=== PATIENT | female | born 1960 | race Caucasian/White ===

== ENCOUNTER 2017-06-24 09:23 | Emergency (ER) | payer MEDICAID ==
[~2017-06-24] VITALS: Ht 161.3 cm; Wt 68.0 kg
[~2017-06-24 09:23] MED LIST: KEFLEX 500MG.500 MG PO; LORTAB 500 MG-71 TAB PO; MEDROL 4MG. DOSE4 MG PO; NORCO 325 MG-51 TAB PO; PREDNISONE 20MG20 MG PO; SIMVASTATIN20 MG PO; TESSALON PERLE100 MG PO; VICODIN 5/500 T1 TAB PO; VOLTAREN75 MG PO
--- OUTSIDE RECORDS SUMMARY | 2017-06-24 09:33 | External Medical Summary Rpt | CCD ---
Author Author , YANNI LIAO Address Unknown Phone [email or web address] Care Team Providers Care Manager Of Operations Name Role Phone Doris Carmona MD, Unavailable Unavailable Doris Carmona MD [facility] # Unavailable Unavailable [id number], [facility] # [id number] Purpose Continuity of Care Document - 10-04-2009 through 2016 Problems Code Diagnosis DOS Provider Status 465.9 465.9 ACUTE 06-07-2013 [place] URI NOS [facility] V15.82 V15.82 06-07-2013 [place] HISTORY OF [facility] TOBACCO USE [facility] Allergies, Adverse Reactions, Alerts Type Allergy to substance Adverse Reaction to Substance Substance Reaction Severity NO KNOWN ALLERGIES Unknown Unknown Medications Na ND Rx Da Fi Fi Am Da Di Ph RX Ph St me C No te ll ll ou ys ag ar # ys at rm s nt no ma ic us Or Da si cy ia de te s n re d IP 00 11 0 No RA 48 -2 T- 70 4- Lo AL 20 20 ng BU 10 13 er T 1 0. Ac 5- ti 3( ve 2. 5) MG /3 ML UT 00 11 0 No ED 05 -2 NI 40 4- Lo SO 01 20 ng NE 82 13 er 0 20 Ac ti MG ve TA BL ET VE 00 11 0 No NT 17 -2 OL 30 4- Lo IN 68 20 ng 22 13 er HF 4 A Ac 90 ti ve MC G IN MONTES LE R Ae 08 11 0 No ro 37 -2 ch 30 4- Lo am 76 20 ng be 50 13 er r/ 0 Op Ac ti ti montes ve le r Hy [address] 57 -2 oc 00 4- Lo od 08 20 ng on 10 13 er e 1 5M Ac G/ ti Ho ve ma tr op in e 1. 00 10 10 0 56 14 [place] 44 FL Ac 40 -0 -0 .0 L- 96 OR ti 60 5- 5- 00 MA 68 EN ve 35 20 20 RT 8 CE 70 11 11 5 PH SA AR RA MA H CY L # 10 05 91 BR 60 09 09 1 24 6 NE 71 FL Ac OM 43 -0 -0 0. L- 34 OR ti FE 20 8- 8- 00 MA 23 EN ve D 83 20 20 0 RT 1 CE DM 71 11 11 6 PH SA CO AR RA UG MA H H CY L SY # RU P 10 05 91 00 09 09 0 20 5 NE 44 FL Ac 40 -0 -0 .0 L- 96 OR ti 60 8- 8- 00 MA 11 EN ve 35 20 20 RT 2 CE 70 11 11 5 PH SA AR RA MA H CY L # 10 05 91 ME 00 09 09 0 21 6 NE 71 FL Ac TH 60 -0 -0 .0 L- 34 OR ti YL 34 8- 8- 00 MA 22 EN ve UT 59 20 20 RT 8 CE ED 31 11 11 NI 5 PH SA SO AR RA LO MA H NE CY L 4 # MG 10 05 DO 91 SE PK DO 53 09 09 0 20 10 NE 71 FL Ac XY 48 -0 -0 .0 L- 34 OR ti CY 90 8- 8- 00 MA 22 EN ve CL 11 20 20 RT 9 CE IN 90 11 11 E 2 PH SA HY AR RA CL MA H AT CY L E # 10 0 10 MG 05 91 CA P CE 68 04 04 0 28 7 NE 71 GR Ac PH 18 -0 -0 .0 L- 14 AY ti AL 00 5- 5- 00 MA 17 ve EX 12 20 20 RT 0 RO IN 20 11 11 BE 1 PH RT 50 AR B 0 MA MG CY # CA PS 10 UL 05 E 91 TR 00 12 12 0 36 6 NE 44 NI Ac AM 37 -0 -0 .0 L- 90 CH ti AD 84 7- 7- 00 MA 31 OL ve OL 15 20 20 RT 9 S 10 10 10 CABRERA HC 1 PH E L AR A 50 MA CY MG # TA 10 BL 05 ET 91 IN 00 09 09 0 30 10 NE 70 NI Ac DO 37 -0 -0 .0 L- 84 CH ti ME 80 3- 3- 00 MA 78 OL ve TH 14 20 20 RT 0 S AC 70 10 10 CABRERA IN 1 PH E AR A 50 MA CY MG # CA 10 PS 05 UL 91 E 00 07 07 0 24 8 NE 70 NI Ac 37 -3 -3 .0 L- 80 CH ti 80 0- 0- 00 MA 30 OL ve 75 20 20 RT 8 S 19 10 10 CABRERA 3 PH E AR A MA CY # 10 05 91 00 05 05 1 36 6 WA 44 NI Ac 09 -2 -2 .0 L- 85 CH ti 30 6- 6- 00 MA 84 OL ve 89 20 20 RT 0 S 00 10 10 CABRERA 5 PH E AR A MA CY # 10 05 91 IN 00 05 05 0 30 10 WA 70 NI Ac DO 37 -2 -2 .0 L- 72 CH ti ME 80 6- 6- 00 MA 15 OL ve TH 14 20 20 RT 3 S AC 70 10 10 CABRERA IN 1 PH E AR A 50 MA CY MG # CA 10 PS 05 UL 91 E 00 05 05 0 24 4 NE 44 NI Ac 40 -0 -0 .0 L- 85 CH ti 60 5- 5- 00 MA 38 OL ve 35 20 20 RT 5 S 80 10 10 CABRERA 1 PH E AR A MA CY # 10 05 91 00 04 04 0 24 4 NE 44 NI Ac 40 -1 -1 .0 L- 84 CH ti 60 6- 6- 00 MA 96 OL ve 35 20 20 RT 8 S 80 10 10 CABRERA 1 PH E AR A MA CY # 10 05 91 00 04 04 0 24 4 NE 44 NI Ac 40 -0 -0 .0 L- 84 CH ti 60 2- 2- 00 MA 64 OL ve 35 20 20 RT 9 S 80 10 10 CABRERA 1 PH E AR A MA CY # 10 05 91 00 03 03 0 24 4 NE 44 NI Ac 40 -2 -2 .0 L- 84 CH ti 60 3- 3- 00 MA 39 OL ve 35 20 20 RT 7 S 80 10 10 CABRERA 1 PH E AR A MA CY # 10 05 91 Vital Signs 06-07-2013 19:19 Name Value Interpretat Reference Comment ion Range BP 76 mm[Hg] Diastolic BP Systolic 130 mm[Hg] Heart 105 /min Rate/Pulse O2% 95 % Respiratory 24 /min Rate 06-07-2013 19:00 Name Value Interpretat Reference Comment ion Range BP 75 mm[Hg] Diastolic BP Systolic 128 mm[Hg] Heart 104 /min Rate/Pulse Respiratory 24 /min Rate 06-07-2013 18:18 Name Value Interpretat Reference Comment ion Range O2% 91 % Encounters Encounter Start End Date Code Location Performer Type Date Emergency YOANDY Carmona MD (ER) 3 18:27 3 19:29 [facility]
--- OUTSIDE RECORDS SUMMARY | 2017-06-24 09:33 | External Medical Summary Rpt | CCD ---
Author Author , YANNI LIAO Address Unknown Phone Care Team Providers Care Manager Completions Name Role Phone Doris Carmona MD, Unavailable Unavailable Doris Carmona MD [facility] # Unavailable Unavailable [id number], [facility] # [id number] Purpose Continuity of Care Document - 10-04-2009 through 2016 Problems Code Diagnosis DOS Provider Status 465.9 465.9 ACUTE 06-07-2013 [place] URI NOS [facility] V15.82 V15.82 06-07-2013 [place] HISTORY OF [facility] TOBACCO USE [facility] Allergies, Adverse Reactions, Alerts Type Allergy to [...] 3( ve 2. 5) MG /3 ML TX 00 11 0 No ED 05 -2 [...] BR 60 09 09 1 24 6 CO 71 FL Ac OM 43 -0 -0 0. L- 34 OR ti FE 20 8- 8- 00 MA 23 EN ve D 83 20 20 0 RT 1 CE DM 71 11 11 6 PH SA CO AR RA UG MA H H CY L SY # RU P 10 05 91 00 09 09 0 20 5 CO 44 FL Ac 40 -0 -0 .0 L- 96 OR ti 60 8- 8- 00 MA 11 EN ve 35 20 20 RT 2 CE 70 11 11 5 PH SA AR RA MA H CY L # 10 05 91 ME 00 09 09 0 21 6 CO 71 FL Ac TH 60 -0 -0 .0 L- 34 OR ti YL 34 8- 8- 00 MA 22 EN ve TX 59 20 20 RT 8 CE ED 31 11 11 NI 5 PH SA SO AR RA LO MA H NE CY L 4 # MG 10 05 DO 91 SE PK DO 53 09 09 0 20 10 CO 71 FL Ac XY 48 -0 -0 .0 L- 34 OR ti CY 90 8- 8- 00 MA 22 EN ve CL 11 20 20 RT 9 CE IN 90 11 11 E 2 PH SA HY AR RA CL MA H AT CY L E # 10 0 10 MG 05 91 CA P CE 68 04 04 0 28 7 CO 71 GR Ac PH 18 -0 -0 .0 L- 14 AY ti AL 00 5- 5- 00 MA 17 ve EX 12 20 20 RT 0 RO IN 20 11 11 BE 1 PH RT 50 AR B 0 MA MG CY # CA PS 10 UL 05 E 91 TR 00 12 12 0 36 6 CO 44 NI Ac AM 37 -0 -0 .0 L- 90 CH ti AD 84 7- 7- 00 MA 31 OL ve OL 15 20 20 RT 9 S 10 10 10 CABRERA HC 1 PH E L AR A 50 MA CY MG # TA 10 BL 05 ET 91 IN 00 09 09 0 30 10 CO 70 NI Ac DO 37 -0 -0 .0 L- 84 CH ti ME 80 3- 3- 00 MA 78 OL ve TH 14 20 20 RT 0 S AC 70 10 10 CABRERA IN 1 PH E AR A 50 MA CY MG # CA 10 PS 05 UL 91 E 00 07 07 0 24 8 CO 70 NI Ac 37 -3 -3 .0 [...] E 00 05 05 0 24 4 CO 44 NI Ac 40 -0 -0 .0 L- 85 CH ti 60 5- 5- 00 MA 38 OL ve 35 20 20 RT 5 S 80 10 10 CABRERA 1 PH E AR A MA CY # 10 05 91 00 04 04 0 24 4 CO 44 NI Ac 40 -1 -1 .0 L- 84 CH ti 60 6- 6- 00 MA 96 OL ve 35 20 20 RT 8 S 80 10 10 CABRERA 1 PH E AR A MA CY # 10 05 91 00 04 04 0 24 4 CO 44 NI Ac 40 -0 -0 .0 L- 84 CH ti 60 2- 2- 00 MA 64 OL ve 35 20 20 RT 9 S 80 10 10 CABRERA 1 PH E AR A MA CY # 10 05 91 00 03 03 0 24 4 CO 44 NI Ac 40 -2 -2 .0 [...] Carmona MD (ER) 3 18:27 3 19:29 [place]
--- OUTSIDE RECORDS SUMMARY | 2017-06-24 09:34 | External Medical Summary Rpt | CCD ---
Demographics Preferred Language Turkish Marital Status Unknown Temple Affiliation Unknown Race Unknown Ethnic Group Unknown Author Author , YANNI LIAO Address Unknown Phone Immunization No patient found.
--- OUTSIDE RECORDS SUMMARY | 2017-06-24 09:34 | External Medical Summary Rpt | CCD ---
Demographics Preferred Language Colombian Marital Status Unknown Jewish Affiliation Unknown Race Unknown Ethnic Group Unknown Author Author , YANNI LIAO Address Unknown Phone [email or web address] Care Team Providers Care Platform Man Name Role Phone [facility] # Unavailable Unavailable [id number], [facility] # [id number] Purpose Continuity of Care Document - 10-04-2009 through 2016 Medications Na ND Rx Da Fi Fi Am Da Di Ph RX Ph St me C No te ll ll ou ys ag ar # ys at rm s nt no ma ic us Or Da si cy ia de te s n re d 00 10 10 0 56 14 [place] 44 FL Ac 40 -0 -0 .0 L- 96 OR ti 60 5- 5- 00 MA 68 EN ve 35 20 20 RT 8 CE 70 11 11 5 PH SA AR RA MA H CY L # 10 05 91 00 09 09 0 20 5 PR 44 FL Ac 40 -0 -0 .0 L- 96 OR ti 60 8- 8- 00 MA 11 EN ve 35 20 20 RT 2 CE 70 11 11 5 PH SA AR RA MA H CY L # 10 05 91 ME 00 09 09 0 21 6 PR 71 FL Ac TH 60 -0 -0 .0 L- 34 OR ti YL 34 8- 8- 00 MA 22 EN ve MD 59 20 20 RT 8 CE ED 31 11 11 NI 5 PH SA SO AR RA LO MA H NE CY L 4 # MG 10 05 DO 91 SE PK DO 53 09 09 0 20 10 PR 71 FL Ac XY 48 -0 -0 .0 L- 34 OR ti CY 90 8- 8- 00 MA 22 EN ve CL 11 20 20 RT 9 CE IN 90 11 11 E 2 PH SA HY AR RA CL MA H AT CY L E # 10 0 10 MG 05 91 CA P BR 60 09 09 1 24 6 PR 71 FL Ac OM 43 -0 -0 0. L- 34 OR ti FE 20 8- 8- 00 MA 23 EN ve D 83 20 20 0 RT 1 CE DM 71 11 11 6 PH SA CO AR RA UG MA H H CY L SY # RU P 10 05 91 CE 68 04 04 0 28 7 WA 71 GR Ac PH 18 -0 -0 .0 L- 14 AY ti AL 00 5- 5- 00 MA 17 ve EX 12 20 20 RT 0 RO IN 20 11 11 BE 1 PH RT 50 AR B 0 MA MG CY # CA PS 10 UL 05 E 91 TR 00 12 12 0 36 6 WA 44 NI Ac AM 37 -0 -0 .0 L- 90 CH ti AD 84 7- 7- 00 MA 31 OL ve OL 15 20 20 RT 9 S 10 10 10 CABRERA HC 1 PH E L AR A 50 MA CY MG # TA 10 BL 05 ET 91 IN 00 09 09 0 30 10 WA 70 NI Ac DO 37 -0 -0 .0 L- 84 CH ti ME 80 3- 3- 00 MA 78 OL ve TH 14 20 20 RT 0 S AC 70 10 10 CABRERA IN 1 PH E AR A 50 MA CY MG # CA 10 PS 05 UL 91 E 00 07 07 0 24 8 WA 70 NI Ac 37 -3 -3 .0 [...] E 00 05 05 0 24 4 WA 44 NI Ac 40 -0 -0 .0 L- 85 CH ti 60 5- 5- 00 MA 38 OL ve 35 20 20 RT 5 S 80 10 10 CABRERA 1 PH E AR A MA CY # 10 00 04 04 0 24 4 WA 44 NI Ac 40 -1 -1 .0 L- 84 CH ti 60 6- 6- 00 MA 96 OL ve 35 20 20 RT 8 S 80 10 10 CABRERA 1 PH E AR A MA CY # 10 00 04 04 0 24 4 WA 44 NI Ac 40 -0 -0 .0 L- 84 CH ti 60 2- 2- 00 MA 64 OL ve 35 20 20 RT 9 S 80 10 10 CABRERA 1 PH E AR A MA CY # 10 00 03 03 0 24 4 WA 44 NI Ac 40 -2 -2 .0 L- 84 CH ti 60 3- 3- 00 MA 39 OL ve 35 20 20 RT 7 S 80 10 10 CABRERA 1 PH E AR A JENNIFER CY # 10 05 91
--- OUTSIDE RECORDS SUMMARY | 2017-06-24 09:34 | External Medical Summary Rpt | CCD ---
Demographics Preferred Language Bermudian Marital Status Unknown Spiritism Affiliation Unknown Race Unknown Ethnic Group Unknown Author Author , YANNI LIAO Address Unknown Phone [email or web address] Care Team Providers Care Kids Activities Coach Name Role Phone [facility] # Unavailable Unavailable [id number], [facility] # [id number] Purpose Continuity of Care Document - 10-04-2009 [...] 91 00 09 09 0 20 5 [place] 44 FL Ac 40 -0 -0 .0 L- 96 OR ti 60 8- 8- 00 MA 11 EN ve 35 20 20 RT 2 CE 70 11 11 5 PH SA AR RA MA H CY L # 10 05 91 ME 00 09 09 0 21 6 [place] 71 FL Ac TH 60 -0 -0 .0 L- 34 OR ti YL 34 8- 8- 00 MA 22 EN ve NE 59 20 20 RT 8 CE ED 31 11 11 NI 5 PH SA SO AR RA LO MA H NE CY L 4 # MG 10 05 DO 91 SE PK DO 53 09 09 0 20 10 [place] 71 FL Ac XY 48 -0 -0 .0 L- 34 OR ti CY 90 8- 8- 00 MA 22 EN ve CL 11 20 20 RT 9 CE IN 90 11 11 E 2 PH SA HY AR RA CL MA H AT CY L E # 10 0 10 MG 05 91 CA P BR 60 09 09 1 24 6 [place] 71 FL Ac OM 43 -0 -0 [...]
--- OUTSIDE RECORDS SUMMARY | 2017-06-24 09:34 | External Medical Summary Rpt | CCD ---
Demographics Preferred Language Mongolian Marital Status Unknown Jain Affiliation Unknown Race Unknown Ethnic Group Unknown Author Author , YANNI LIAO Address Unknown Phone Immunization No patient found.
--- NOTE | 2017-06-24 10:34 | Urgent Treatment Center Report ---
History of Present Issue Date/Time Seen by Provider 06/24/17 1034 Visit Reason Pt arrived:Walked Presenting Problem:PT C/O HEAD AND CHEST CONGESTION AND COUGH X3 WEEKS Location if Accident: Onset of symptoms date/time:/ or onset unknown for:MEDICAL HX UNKNOWN Have you (or family members/close friends) recently traveled outside the [place]? N If Yes, where/when: Have you had exposure to infectious disease within the past month? TB? Other? Specify: c/o persistant cough. 3-4 weeks now. Started w/ aching and nonprod cough. Pt thought improving around 2 weeks in but then got worse "and now just at a stand still". Cough worse w/ activity, deep breath and at night. Denies SOA. Possibly occasional wheezing but not sure. No known sick contacts. Feels feverish intermittently "but nothing persistantly". 1.5 pack/2-3 days smoker. Little to no improvement w/ coricidin products Source patient Exam Limitations no limitations ALLERGIES Coded Allergies: No Known Allergies (06/24/17) Home Medications Active Scripts HYDROCODONE/ACETAMINOPHEN ([place] 5-325 Tablet) 1 TAB PO Q6HP PRN pain #12 TAB Prov: 12/26/13 History Medical History General CAD? No Angina: No HI: No Hypertension? No Hyperlipidemia? Yes CHF? No DVT? No PE? No COPD? No Asthma? No Anemia? No GERD? No Gastric ulcers? No GI Bleed? No Hernia? No Thyroid Problems? No Hypothyroidism? No CVA? No Seizures? No Diabetes? No Renal Insuffiency? No UTI? No Stones? No BPH? No GB Disease: No Nephritic Syndrome? No Asplenia? No Hepatitis? No Sickle Cell Disease? No Arthritis? No Migraines? No Cataracts? No Glaucoma? No MRSA? No HIV? No TB? No Anxiety? No Depression? No Cancer? Yes Site: VAGINAL WHEN CHILD More? No Immunization HX DT/Tetanus 10/15/10 Surgical Hx Previous Surgery?Y Tubal Ligation BLADDER D AND C Social History Smoking Hx Smoker: Current Every Day Smoker Tobacco: Yes Type Cigarettes Packs/day < 1 Pack Alcohol Alcohol: No Review of Systems All Other Systems Reviewed and Negative Constitutional see HPI, denies malaise, denies weakness Eyes denies drainage ENT nose discharge (initially), nose congestion (initially). denies: ear pain, throat pain. Respiratory see HPI Cardiovascular denies chest pain, denies palpitations Gastrointestinal denies no symptoms reported Musculoskeletal denies joint pain Skin denies rash Psychiatric/Neurological headache (mild, intermittently) Physical Exam Vital Signs Vital Signs Date Time Temp Pulse Resp B/P Pulse O2 O2 Flow FiO2 Ox Delivery Rate 06/24 0948 98.2 99 18 149/84 98 General Appearance normal appearance, no apparent distress Eye Exam - bilateral eye normal exam Ear, Nose, Throat normal ENT inspection Neck non-tender, supple Respiratory Status Yes: trachea midline, chest symmetrical, non tender chest, non productive cough (worse w/ deep breaths). No: respiratory distress, use of accessory muscles, pain on inspiration, pain on expiration. Lung Sounds anterior: lungs clear. posterior: lungs clear. bilateral: lungs clear. Cardiovascular regular rate/rhythm, no peripheral edema, no murmur Neurologic alert, oriented x 3 Mental status normal mood/affect Skin normal color, warm/dry Lymphatic no adenopathy Medical Decision Making LABS/Meds/Orders Pt receiving controlled substance in ED? No Results/Orders Orders Procedure Date/time Status CHEST(2 VIEWS-NOT PORTABLE) 06/24 0950 Active XRAY/CT/US XRAY/CT/US XRAY chest XR interpretation by reviewed by me (w/ Dr. Mcleod, ER MD) Xray Results no acute findings Progress [facility] Progress Notes Date 06/24/17 Time 1040 Comment Spoke to Aron in ER. ER MD in a procedure and unable to review CXR at this time. Will have him review once he is available. Departure Departure Time of Disposition 1053 Disposition DC Home or Self Care(routine) Clinical Impression Primary Impression: Acute bronchitis Qualifiers: Bronchitis organism: unspecified organism Qualified Code: J20.9 - Acute bronchitis, unspecified Secondary Impressions: Tobacco abuse Condition STABLE Referrals [facility] (Family) IMMEDIATELY for new or worsening symptoms OR no noticeable improvement over the next 72 hours. 911 for difficulty breathing. Patient Instructions DI for Acute Bronchitis, How to Quit Tobacco Products Additional Instructions * STOP SMOKING!!!! * start antibiotic today. Be sure to complete entire prescription even if feeling better. * Monitor Temp. Tylenol every 4 hours as needed no more then 5 times a day or 4000mg in 24 hours and/or ibuprofen every 6 hours as needed no more then 3200mg in 24 hours (as long as your primary care doctor has told you that it is ok to take both) for fever/aches/pain. ER if fever no less than 101 despite tylenol and ibuprofen * humidifier/vaporizer/hot steamy shower * Inhaler every 4-6 hours as needed like we discussed. If unsure how to use it, ask pharmacist to demonstrate how. Should help open airways and improve cough, wheezing, shortness of breath. * Mucinex during the day for your cough and cough suppressant only at night. Be sure to drink lots of water. Insurance may not cover a prescription of mucinex. Might be cheaper to get 400mg tablets and take 2 tablets morning, midday and evening all with lots of water. * Promethazine DM cough syrup will cause drowsiness. Use it only at night. No driving, operating machinery or caring for small children after taking it. * Start steroid today. Helps with inflammation therefore, cough and wheezing. Follow directions on package. Rvwd side effects. Pt reports they have taken them before. Discharge Counseling Counseled pt/family regarding diagnosis, test results, medications/RX, home care, follow up needs Prescriptions Current Visit Scripts ALBUTEROL (Proventil Hfa Inhaler) 1-2 PUFF IH Q4-6H PRN PRN SOA, wheezing #1 CAN Azithromycin (Zithromycin (Z-BIANCA) 250MG Tab) 250 MG PO DAILY #6 TAB TAKE TWO (2) TABLETS ON DAY 1, THEN ONE (1) TABLET DAY #2 THRU #5 Prednisone (Prednisone 20MG) 20 MG PO BID #10 TAB PROMETHAZINE/DEXTROMETHORPHAN (Promethazine-Dm Syrup) 10 ML PO QHSP PRN cough #120 ML at 1054
[2017-06-24] MEDS ORDERED: ZITHROMAX Z PA250 MG PO (10:56)
[2017-06-24] MEDS ORDERED: PREDNISONE 20MG20 MG PO (10:56)
[2017-06-24] MEDS ORDERED: PROVENTIL0.09 MG/A1 IH (10:56)
[2017-06-24] MEDS ORDERED: PROMETHAZINE D118 ML PO (10:56)
[2017-06-24 11:08] VITALS: BP 149/84
--- NOTE | 2017-06-24 13:31 | RADIOLOGY REPORT PS360 ---
CHEST(2 VIEWS-NOT PORTABLE) HISTORY: HEAD AND CHEST CONGESTION AND COUGH X3 WEEKS ORDERING PHYSICIAN: JULIUS ISRAEL APRN PATIENT AGE: 57 years COMPARISON: 12/26/2013 FINDINGS: The cardiomediastinal silhouette and pulmonary vascularity are within normal limits. The lungs are clear without infiltrates, suspicious nodules, or pleural effusions. No acute bony abnormalities. IMPRESSION: Negative chest, no acute finding
== END 2017-06-24 11:09 | disposition home or self-care (01) ==
LOC: UTC 09:23
DX: J20.9 Acute bronchitis, unspecified (principal); F17.210 Nicotine dependence, cigarettes, uncomplicated; Z85.44 Personal history of malignant neoplasm of other female genital organs